=== PATIENT | male | born 1985 | race Caucasian/White ===

== ENCOUNTER → 2019-12-05 15:07 | Outpatient (CLI) | payer SELFPAY ==
--- NOTE | 2019-12-05 15:13 | CT_ITS ---
PROCEDURE: CT HEART W CALCIUM SCORE CLINICAL HISTORY: SCREENING COMPARISON: No exams were available for comparison TECHNIQUE: Axial images obtained with sagittal and coronal reformats. All CT scans at the facility use one or more dose reduction, viz: automated exposure control, ma/kV adjustment per patient size (including targeted exams where dose is matched to indication, i.e. head), or iterative reconstruction technique. FINDINGS: The coronary artery calcium score is 0 with no identifiable calcific atherosclerotic plaque. No pertinent incidental findings. There is some increased density in the anterior mediastinum which may be related to residual thymic tissue IMPRESSION: No identifiable calcific atherosclerotic plaque indicating very low cardiovascular disease risk Dictated by: Sajan Suarez MD 12/05/2019 16:26 Electronically signed by Sajan Suarez MD in [place] 12/05/2019 16:26
== END ==
PROVIDERS: PCP Family Medicine; Visit Provider Internal Medicine Cardiovascular Disease
DX: Z13.6 Encounter for screening for cardiovascular disorders (principal)
CPT/HCPCS: 75571